=== PATIENT | male | born 1945 | race Caucasian/White ===

== ENCOUNTER 2022-05-29 14:22 | Emergency (ER) | payer BC ==
[2022-05-29] MEDS ORDERED: SODIUM CHLORIDE 0.9% 1000 ML INFUS.BAG IV ONE (14:50)
[2022-05-29 15:18] VITALS: TEMP 98.3; BMI 24.7
[2022-05-29 15:35] LABS: BASO % 0.4 % (0-2.0); EOS % 1.4 % (0-4.5); HEMATOCRIT 34.9 % (35.4-49); LYMPH % 12.3 % (8-40); MCH 32.4 pg (25.7-33.7); MCHC 34.4 g/dl (32.0-35.9); MEAN CELL VOLUME 94.4 fl (80-96); MEAN PLT VOLUME 9.1 fl (7.5-11.1); MONO % 8.9 % (3.8-10.2); PLATELET COUNT 148 10^3/uL (134-434); RDW 12.8 % (11.9-15.9); WHITE BLOOD COUNT 5.1 K/mm3 (4.0-10.0)
[2022-05-29 15:43] LABS: VENOUS BASE EXCESS -2.8 mmol/L (-2-2); VENOUS O2 SATURATION 92.4 % (70-80); VENOUS PCO2 35.7 mmHg (38-52); VENOUS PH 7.397 (7.310-7.410)
[2022-05-29 15:57] LABS: ALBUMIN 3.4 g/dl (3.4-5.0); BLOOD UREA NITROGEN 18.1 mg/dL (7-18); CALCIUM 8.5 mg/dL (8.5-10.1); MAGNESIUM 1.5 mg/dL (1.8-2.4)
[2022-05-29 16:02] LABS: BILIRUBIN,TOTAL 0.7 mg/dL (0.2-1)
[2022-05-29] MEDS ORDERED: MAGNESIUM SULF 50% (8.12 MEQ/2 ML-1 GM VIAL) IVPB ONE (16:25)
[2022-05-29 17:15] LABS: CALCIUM 8.5 mg/dL (8.5-10.1)
[2022-05-29 17:19] LABS: CREATININE 0.9 mg/dL (0.55-1.3)
[2022-05-29 17:22] VITALS: RESP 15
[2022-05-29 18:12] VITALS: BP 113/71; PULSE 70
== END 2022-05-29 18:12 | disposition home or self-care (01) ==
LOC: JER 14:22
DX: R73.9 Hyperglycemia, unspecified (principal)
CPT/HCPCS: 0241U-QW; 36415; 71045-TC-FY; 80048; 80053; 82010; 82803; 82962; 83735; 84484; 85025; 93005; 93010; 99285-25